=== PATIENT | male | born 1970 | race African-American/Black ===

== ENCOUNTER 2023-08-10 08:30 | Emergency (ER) | payer OTHER ==
[2023-08-10 08:42] VITALS: BP 134/85; PULSE 85; RESP 17; TEMP 97.7; BMI 33.6
[2023-08-10 10:20] LABS: BASO % 0.4 % (0-2.0); EOS % 1.3 % (0-4.5); HEMATOCRIT 42.7 % (35.4-49); HEMOGLOBIN 13.8 GM/dL (11.7-16.9); MCH 22.1 pg (25.7-33.7); MCHC 32.3 g/dl (32.0-35.9); MEAN CELL VOLUME 68.5 fl (80-96); MEAN PLT VOLUME 7.7 fl (7.5-11.1); MONO % 9.3 % (3.8-10.2); PLATELET COUNT 215 10^3/uL (134-434); RBC 6.23 M/mm3 (4.00-5.60); RDW 16.3 % (11.9-15.9); WHITE BLOOD COUNT 3.2 K/mm3 (4.0-10.0)
[2023-08-10 10:45] LABS: POTASSIUM 4.8 mmol/L (3.5-5.1)
[2023-08-10 10:47] LABS: CALCIUM 9.6 mg/dL (8.5-10.1)
[2023-08-10 10:48] LABS: ALBUMIN 3.8 g/dl (3.4-5.0); BLOOD UREA NITROGEN 14.7 mg/dL (7-18)
[2023-08-10 10:52] LABS: BILIRUBIN,TOTAL 0.3 mg/dL (0.2-1); CREATININE 1.1 mg/dL (0.55-1.3); TOT PROT 7.9 g/dl (6.4-8.2)
== END 2023-08-10 11:50 | disposition home or self-care (01) ==
LOC: JER 08:30
DX: R07.89 Other chest pain (principal); R51.9 Headache, unspecified; R20.0 Anesthesia of skin
CPT/HCPCS: 36415; 71046-TC-FY; 80053; 84484; 85025; 93005; 93010; 99285-25

== ENCOUNTER 2023-09-14 12:36 | Emergency (ER) | payer OTHER ==
[2023-09-14 12:50] VITALS: RESP 18; TEMP 98; BMI 35.9
[2023-09-14] MEDS: ACETAMINOPHEN 500 MG TABLET (FP) PO ONE (14:36)
[2023-09-14 14:40] LABS: BASO % 0.4 % (0-2.0); EOS % 2.2 % (0-4.5); HEMATOCRIT 41.8 % (35.4-49); HEMOGLOBIN 13.3 GM/dL (11.7-16.9); MCHC 31.7 g/dl (32.0-35.9); MEAN CELL VOLUME 69.3 fl (80-96); MEAN PLT VOLUME 7.7 fl (7.5-11.1); MONO % 9.7 % (3.8-10.2); NEUT % 38.7 % (42.8-82.8); PLATELET COUNT 222 10^3/uL (134-434); RBC 6.04 M/mm3 (4.00-5.60); RDW 15.9 % (11.9-15.9); WHITE BLOOD COUNT 3.8 K/mm3 (4.0-10.0)
[2023-09-14 15:02] LABS: ANISOCYTOSIS 3+; MACROCYTOSIS 0
[2023-09-14 15:03] LABS: ALBUMIN 3.6 g/dl (3.4-5.0); BLOOD UREA NITROGEN 17.3 mg/dL (7-18)
[2023-09-14 15:06] LABS: CREATININE 1.1 mg/dL (0.55-1.3)
[2023-09-14 15:08] LABS: BILIRUBIN,TOTAL 0.2 mg/dL (0.2-1); TOT PROT 7.6 g/dl (6.4-8.2)
[2023-09-14 16:35] VITALS: BP 129/78; PULSE 83
== END 2023-09-14 16:35 | disposition home or self-care (01) ==
LOC: JER 12:36
DX: R51.9 Headache, unspecified (principal); R07.81 Pleurodynia
CPT/HCPCS: 36415; 70450-TC; 71046-TC-FY; 80053; 84484; 85025; 93005; 93010; 99285-25